=== PATIENT | female | born 1980 | race Caucasian/White ===

== ENCOUNTER 2016-10-18 05:35 | Day surgery (SDC) | payer MEDICAID ==
[~2016-10-18 05:35] MED LIST: ADVAIR HFA 115-12 GM IH; ADVAIR HFA 115/12 GM IH; ALBUTEROL0.83 MG/ML INH; AMBIEN CR6.25 MG/BO; AMBIEN5 M1 PO; ASPIRIN EC81 MG PO; ATARAX50 MG PO; BACITRACIN TOP; BACTRIM DS TABL1 TAB PO; BUSPAR10 MG PO; BUSPAR5 MG PO; BUSPIRONE HCL10 M2 PO; BUTALB-ACETAMI1 EAC4 PO; CEFDINIR300 MG PO; CHANTIX0.5 MG/TAB PO; CHANTIX1 MG PO; CIPRO250 MG PO; CLONAZEPAM1 MG PO; COMPAZINE10 M PO; CYCLOBENZAPRINE5 M1 PO; CYMBALTA30 MG; DEPAKOTE500 M1 PO; DIFLUCAN100 MG PO; DIVALPROEX SOD250 M3 PO; DOMPERIDONE PO; EFFEXOR XR75 M1 PO; ELIMITE60 GM TP; ENDOCET 5-3251 EACH PO; FLEXERIL10 MG PO; FLEXERIL5 M1 PO; FLORINEF ACETA0.1 MG; FLORINEF PO; FLUDRICORTISON0.1 MG PO; FLUDROCORTISON0.1 M1 PO; GLUCAGON EMERGEN1 MG IJ; GRANISETRON HCL1 MG PO; H PO; HUMALOG INSULIN; HUMALOG100 U/ML; HUMALOG100 U/ML SQ; HYDROCODON-ACE1 EA17 PO; HYDROCODONE; IMODIUM A-D2 MG; IMODIUM2 MG PO; INSULIN; INSULIN PUMP R1 EACH MC; KLONOPIN0.5 MG PO; KLONOPIN1 M1 PO; KLONOPIN2 M1 PO; LANTUS SOLOSTAR3 ML SQ; LANTUS100 U/ML; LANTUS100 U/ML SC; LIPITOR20 MG; LIPITOR40 M1 PO; LISINOPRIL2.5 MG PO; LISINOPRIL20 M1 PO; LISINOPRIL20 MG PO; LISINOPRIL5 M1 PO; LOMOTIL TABLET1 TAB PO; LORCET PLUS 7.1 EACH PO; LYRICA; LYRICA100 MG PO; METOCLOPRAMIDE10 M2 PO; METOPXL25 PO; MOTRIN600 MG PO; MUCINEX D TABL1 EACH PO; NORCO 5/325 TAB1 TAB PO; NORCO 5/3251 TA1 PO; NORCO 5/3251 TA2 PO; NORCO 5/3251 TAB PO; NOVOLOG100 U/M; NOVOLOG100 U/M SQ; OMEPRAZOLE20 MG PO; OMNICEF300 MG PO; OXYCONTIN20 M2 PO; PERCOCET 5/3251 TAB; PERCOCET 5/3251 TAB PO; PERCOCET 5MG/AP1 TAB PO; PHENERGAN; PHENERGAN25 MG; PHENERGAN25 MG/SUPP; PRILOSEC OTC20 M1 PO; PRILOSEC OTC20 MG; PRILOSEC OTC20 MG PO; PROPRANOLOL HCL20 M2 PO; REGLAN10 MG; REGLAN5 M1 PO; REGLAN5 MG PO; ROZEREM8 MG; ROZEREM8 MG PO; SALINE LOCK MAIN1 EA IVP; SAVELLA12.5 MG PO; SAVELLA50 MG PO; SAVILLA PO; TOPAMAX25 MG PO; TOPAMAX50 M3 PO; TOPIRAMATE25 M3 PO; TOPROL XL25 MG PO; TOPROL XL50 M1 PO; TYLENOL325 MG PO; ULTRAM50 MG; VALTREX500 M1 PO; VALTREX500 MG; VALTREX500 MG PO; VICODIN 5/500 T1 TAB PO; ZELNORM; ZOFRAN; ZOFRAN ODT4 MG/UDTAB PO; ZOFRAN ODT8 MG/TAB PO; ZOFRAN4 MG; ZOFRAN4 MG PO; ZOLOFT100 M1 PO; ZOLOFT100 MG; ZOLOFT100 MG PO; [UNRECOGNIZED DRUG - OTHER] TP; [UNRECOGNIZED DRUG - REMARK]; antibiotic
[2016-10-18 06:47] LABS: ANION GAP 11 mmol/L (0-20); BLOOD UREA NITROGEN 19 mg/dl (6-24); CALCIUM 8.5 mg/dl (8.5-10.5); CARBON DIOXIDE-VENOUS 28 mmol/L (22-32); CHLORIDE 103 mmol/l (96-110); GLUCOSE 287 mg/dL (70-110); POTASSIUM 4.1 mmol/L (3.7-5.1); SODIUM 138 mmol/L (135-145); eGFR VALUE FOR BLACK 76 mL/Min
[2016-10-18 07:12] LABS: URINE APPEARANCE CLEAR; URINE BILIRUBIN NEGATIVE (NEG); URINE BLOOD SMALL (NEG); URINE COLOR YELLOW; URINE GLUCOSE (UA) LARGE (NEG); URINE KETONE NEGATIVE (NEG); URINE LEUKOCYTE ESTERASE NEGATIVE (NEG); URINE NITRITE NEGATIVE (NEG); URINE PROTEIN MODERATE (NEG)
[2016-10-18 07:30] LABS: URINE BACTERIA 1+; URINE WBC RARE /[HPF] (0-5)
[2017-04-16] MEDS ORDERED: VALIUM10 M1 PO (22:29)
[2017-04-16] MEDS ORDERED: VISTARIL25 M1 PO (22:30)
[2017-04-16] MEDS ORDERED: PREDNISONE20 M1 PO (23:28)
[2017-04-21] MEDS ORDERED: ATIVAN1 M2 PO (23:10)
== END 2016-10-18 10:40 ==
LOC: SRG 05:35 → SHSB 05:41 → PACU 08:09 → SHSB 09:25
PROVIDERS: Anesthesiology; Obstetrics & Gynecology
PROC: 0U5MXZZ Destruction of Vulva, External Approach (ICD-10-PCS; principal; 2016-10-18)
DX: A63.0 Anogenital (venereal) warts (principal); I47.1 Supraventricular tachycardia; E78.00 Pure hypercholesterolemia, unspecified; G40.909 Epilepsy, unspecified, not intractable, without status epilepticus; F41.9 Anxiety disorder, unspecified; F32.9 Major depressive disorder, single episode, unspecified; J45.909 Unspecified asthma, uncomplicated; K21.9 Gastro-esophageal reflux disease without esophagitis; E11.22 Type 2 diabetes mellitus with diabetic chronic kidney disease; N18.3 Chronic kidney disease, stage 3 (moderate); F17.200 Nicotine dependence, unspecified, uncomplicated; Z79.4 Long term (current) use of insulin; Z79.899 Other long term (current) drug therapy; Z87.11 Personal history of peptic ulcer disease; Z98.51 Tubal ligation status; Z98.49 Cataract extraction status, unspecified eye; Z98.890 Other specified postprocedural states
CPT/HCPCS: J3010